=== PATIENT | female | born 1995 ===

== ENCOUNTER 2024-10-16 00:03 | Emergency (ER) | payer SELFPAY ==
[2024-10-16 00:06] VITALS: BMI 27.3
[2024-10-16 00:20] VITALS: BP 140/93; PULSE 86; RESP 20; TEMP 36.6; O2SAT 95
--- NOTE | 2024-10-16 00:26 | PD.EDALCOH ---
ED Alcohol RME/HPI General Chief Complaint: General Adult/Misc Complain Stated Complaint: ETOH WITHDRAWAL LAST DRINK 5DAYS Time Seen by Provider: 10/16/24 00:24 Arrival date/time: 10/16/24 00:03 29F with history of alcohol use (last drink 5 days ago) presents to ED with alcohol withdrawal symptoms including anxiety. Patient also admits increased life stressors recently. Patient denies SI/HI. Limitations: no limitations Related Data Allergies Allergy/AdvReac Type Severity Reaction Status Date / Time No Known Allergies Allergy Verified 10/16/24 00:05 Review of Systems Review of Systems Systems Reviewed: All systems reviewed, normal except as documented Psychiatric Psychiatric: Reports as per HPI and Reports anxiety Past Medical History Social History SMOKING STATUS: Never smoker ED Exam General Limitations: Present no limitations General appearance: Present alert, in no apparent distress and anxious Head Head exam: Present atraumatic Eye Eye exam: Present normal appearance, PERRL and EOMI Neck Neck exam: Present normal inspection, full ROM and trachea midline Chest Chest inspection: Present normal inspection and symmetric chest wall rise Extremities Exam Extremities exam: Present normal inspection and full ROM Psychiatric Psychiatric exam: Present normal affect, normal mood and anxious Skin Skin exam: Present warm, dry, intact and normal color Course Quality Measures none Orders Category Date Time Status Diazepam [Valium] Med 10/16/24 00:25 Discontinued 10 mg PO X1 ONE Vital Signs Vital signs: Vital Signs Temperature 97.8 F 10/16/24 00:20 Pulse Rate 86 10/16/24 00:20 Respiratory Rate 20 10/16/24 00:20 Blood Pressure 140/93 H 10/16/24 00:20 Pulse Oximetry (%) 95 10/16/24 00:20 Oxygen Delivery Method Room Air 10/16/24 00:20 O2 at 95% on RA and WNLs Discharge Plan Plan Patient Disposition: Elopement Prescriptions/Referrals Referrals: Temporary Provider,ED [Primary Care Provider, Emergency Medicine] - In 1 week Problem List Clinical Impression: Alcohol withdrawal, Stress reaction Patient/Caregiver Discharge Instructions Print Language: 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 Melendrez Alcohol MDM Narrative MDM Narrative: 29F with history of alcohol use (last drink 5 days ago) presents to ED with alcohol withdrawal symptoms including anxiety. Patient also admits increased life stressors recently. Patient denies SI/HI. Physical exam reveals normal pupil response. Normal WOB. No tremors. Patient is afebrile, alert, but crying/anxious. Patient eloped after getting Valium. Male friend with her is going to drive home. Patient data External records reviewed:: None Clinical information provided by:: patient Social determinants that could affect healthcare access:: alcohol use Patient has the following chronic illnesses:: alcohol How is presenting disease/condition affected by chronic disease/condition?: exacerbated by Evaluation data The following diagnostics were reviewed and interpreted by me:: other (specify) Lab and/or radiology exams considered but not ordered:: not ordered Interpretation Summary: n/a Medications / Prescriptions Medications or Prescriptions considered but not ordered:: ordered Medication administrations:: Medication Administration History Discontinued Medications Diazepam (Diazepam 5 Mg Tablet) 10 mg PO X1 ONE Stop: 10/16/24 00:26 Last Admin: 10/16/24 00:36 Dose: 10 mg Documented By: EE above Consultations Consultation(s) initiated? (list below): No Diagnosis Differential diagnosis alcohol: alcohol withdrawal delirium, hypomagnesemia, alcohol intoxication, alcohol ketoacidosis, alcohol withdrawal syndrome and alcohol withdrawal seizure Most likely diagnosis given after review of the tests above:: alcohol withdrawal, stress reaction Admission Indicated Admission indicated?: not indicated Admission Request Was there a request for admission?: No Disposition Plan Disposition Plan: other (specify) (eloped)
[2024-10-16] MEDS: DIAZEPAM 5 MG TABLET 10 MG PO (00:36)
--- NOTE | 2024-10-16 01:19 | PC.NURSE ---
PT ELOPED THE ER PER PROVIDER.
== END 2024-10-16 01:19 | disposition left against medical advice (07) ==
LOC: SERX 01:17
PROVIDERS: Emergency Provider Emergency Medicine
DX: F10.239 Alcohol dependence with withdrawal, unspecified (principal); F43.9 Reaction to severe stress, unspecified
CPT/HCPCS: 99282; A9270